=== PATIENT | male | born 1965 | race Hispanic/Latino ===

== ENCOUNTER 2020-11-24 15:09 | Inpatient (IN) | payer SELFPAY ==
[~2020-11-24 15:09] MED LIST: Iopamidol-370 76% 500 ML 1 ML ONE
[2020-11-24] MEDS ORDERED: Aspirin Chewable 81 MG TAB ONE (15:25)
[2020-11-24] MEDS ORDERED: cefTRIAXone\\ROCEPHIN 2 GM VIAL ONE (15:25)
[2020-11-24] MEDS ORDERED: Dexamethasone 4 mg/ml Vial ONE (15:25)
[2020-11-24 15:43] LABS: Hemoglobin 15.8 g/dL (14.0-18.0); Mean Corpuscular HGB CONC 33.5 g/dL (32.0-36.0); Mean Corpuscular Hemoglobin 30.9 pg (27.0-31.0); Mean Corpuscular Volume 92.5 fL (78.0-98.0); Mean Platelet Volume 7.9 fL (7.4-10.4); Platelet Count 198 thou/uL (130-400); RBC Distribution Width 12.9 % (11.5-14.5); Red Blood Cell (RBC) Count 5.09 mill/uL (4.70-6.10); White Blood Cell (WBC) Count 34.3 thou/uL (4.8-10.8)
[2020-11-24 16:03] LABS: ALT (SGPT) 54 U/L (8-55); AST (SGOT) 33 U/L (5-34); Albumin 3.3 g/dL (3.5-5.0); Alkaline Phosphatase 83 U/L (40-110); Anion Gap 14 mmol/L (10-20); BUN (Urea Nitrogen) 13 mg/dL (8.4-25.7); Bilirubin, Total 1.4 mg/dL (0.2-1.2); CK (CPK) 59 U/L (30-200); Calc. Creatinine Clearance 0 mL/min (70-130); Calcium 8.2 mg/dL (7.8-10.44); Carbon Dioxide 23 mmol/L (22-29); Chloride 103 mmol/L (98-107); Globulin 3.9 g/dL (2.4-3.5); Glucose 125 mg/dL (70-105); Lipase 46 U/L (8-78); Potassium 3.9 mmol/L (3.5-5.1); Protein, Total 7.2 g/dL (6.0-8.3); Sodium 136 mmol/L (136-145)
[2020-11-24 16:08] LABS: Band 25 % (5-11); Lymphocytes 11 % (21-51); MDiff Complete? YES; Metamyelocyte 2 % (0-0); Monocytes 11 % (0-10); Myelocyte 1 % (0-0); Neutrophil 47 % (42-75); Platelet Morphology Comment Appears Adequate; Polychromasia SLIGHT = 2-3 cells (100X) (0-2/hpf); Reactive Lymphocytes 3 % (0-10)
--- NOTE | 2020-11-24 16:20 | RAD ---
CHEST ONE VIEW: History: Shortness of breath, Covid pneumonia. Comparison: None FINDINGS: There is a linear opacity which has the appearance of a catheter projecting in the left hemithorax ma y be extrinsic to the patient. Extensive airspace opacities throughout the lungs. No pneumothorax. IMPRESSION: Commonly reported imaging findings felt to be high grade Covid pneumonia. POS: [facility]
[2020-11-24 16:25] LABS: CKMB 1.2 ng/mL (0-6.6)
[2020-11-24] MEDS ORDERED: Enoxaparin Sodium 100 MG/ML SYRINGE ONE (16:28)
[2020-11-24] MEDS ORDERED: Azithromycin 500 MG VIAL ONE (16:29)
[2020-11-24] MEDS ORDERED: Acetaminophen 500 MG TAB ONE (16:52)
--- NOTE | 2020-11-24 17:19 | PDOC.HHP ---
Hospitalist HPI - History of Present Illness Dyspnea History of Present Illness: PCP: None The patient is a 55-year-old male with no significant past medical history that presents to the emergency department for the above complaint. Patient reports testing positive for Covid 19 virus approximately 2 weeks ago. He remembers becoming symptomatic on the or 09 of November. Several days later he tested positive for COVID-19 virus. He reports his initial symptoms were mild shortness of breath, mild, intermittent, nonproductive cough and "a little bit" of diarrhea. He reports starting oral steroids that he completed several days ago. He reports that 2 days ago he became significantly more short of breath. His cough is mild and nonproductive. He denies any wheezing, history of asthma/COPD. He has no history of DVT/PE. He has been ambulatory. He denies any swelling to his lower extremities. He denies any chest pain, heart palpitations or lightheadedness. He denies any abdominal pain, nausea, vomiting or diarrhea. He denies any dysuria or hematuria. He denies any fever or chills. ED Course: VITAL SIGNS TueNov 24, 2020 15:12 LISA Flores, [facility] Pulse: 130, O2 sat: 75 on (2L Oxygen), Time: 11/24/2020 15:12. VITAL SIGNS TueNov 24, 2020 15:16 LISA Tapia [place] BP: 115/80, Pulse: 122, Resp: 42, Temp: 100.9 (Oral), Pain: 0, O2 sat: 84 on (4L Oxygen), Time: 11/24/2020 15:16. VITAL SIGNS TueNov 24, 2020 15:19 LISA [place]ia [place] O2 sat: 91 on (Non Rebreather), Time: 11/24/2020 15:19. VITAL SIGNS TueNov 24, 2020 16:49 LISA Tapia [place] BP: 133/92, Pulse: 109, Resp: 33, Pain: 0, O2 sat: 93 on (High Flow O2), Time: 11/24/2020 16:49. Medications: azithromycin intravenous 500 mg IV Piggy Back Given 16:43 11/24/2020 Tylenol 1 g Oral Given 16:43 11/24/2020 Lovenox 1 mg/kg Subcutaneous Given 16:42 11/24/2020 Decadron Phosphate injection 10mg mg IV Push Given 15:53 11/24/2020 cefTRIAXone injection 2 g IV Piggy Back Given 15:53 11/24/2020 sodium chloride 0.9 % intravenous 1 L IV Fluid Infusion Given 15:52 11/24/2020 aspirin oral 324 mg Oral Given 15:51 11/24/2020 Hospitalist ROS - Review of Systems All other systems reviewed; all pertinent +/- noted in HPI/Subj - Medication Medications: None Allergies: NKDA Hospitalist History - Past Medical History Source: patient Cardiac: reports: no pertinent history Pulmonary: reports: no pertinent history - Past Surgical History Past Surgical History: reports: no pertinent history - Family History Family History: reports: no pertinent history Other Family History: Noncontributory to this case. - Social History Smoking Status: Never smoker Alcohol: reports: None Drugs: reports: none Living Situation: With Family Occupation: Works as a die maintenance Activity level: independent ambulation - Exam General Appearance: awake alert. negative: ill appearing General - other findings: Mild respiratory distress, high flow nasal cannula, mildly tachypneic Eye: anicteric sclera ENT: normocephalic atraumatic Neck: supple, no lymphadenopathy Heart: no murmur, no gallops, no rubs, normal peripheral pulses Heart - other findings: Tachycardic Respiratory: no wheezes, no rales, rhonchi, tachypneic (Mildly tachypneic). negative: no tachypnea Gastrointestinal: soft, non-tender, non-distended, normal bowel sounds, no guarding, no rigidity Extremities: no cyanosis, no edema Skin: no rashes Neurological: no focal deficits Musculoskeletal: normal tone, normal strength Psychiatric: normal affect, A&O x 3 Hospitalist Results - Labs Result Diagrams: 11/24/20 15:27 11/24/20 15:27 Lab results: WBC 34.3 thou/uL (4.8-10.8) H 11/24/20 15: Hgb 15.8 g/dL (14.0-18.0) 11/24/20 15:27 Hct 47.1 % (42.0-52.0) 11/24/20 15: MCV 92.5 fL (78.0-98.0) 11/24/20 15:27 Plt Count 198 thou/uL (130-400) 11/24/20 15:27 Band Neuts % (Manual) 25 % (5-11) H 11/24/20 15:27 Sodium 136 mmol/L (136-145) 11/24/20 15:27 Potassium 3.9 mmol/L (3.5-5.1) 11/24/20 15:27 Chloride 103 mmol/L (98-107) 11/24/20 15: Carbon Dioxide 23 mmol/L (22-29) 11/24/20 15:27 BUN 13 mg/dL (8.4-25.7) 11/24/20 15: Creatinine 0.86 mg/dL (0.7-1.3) 11/24/20 15: Glucose 125 mg/dL (70-105) H 11/24/20 15: Lactic Acid 1.5 mmol/L (0.5-2.2) 11/24/20 15:39 Calcium 8.2 mg/dL (7.8-10.44) 11/24/20 15: Total Bilirubin 1.4 mg/dL (0.2-1.2) H 11/24/20 15:27 AST 33 U/L (5-34) 11/24/20 15: ALT 54 U/L (8-55) 11/24/20 15: Alkaline Phosphatase 83 U/L (40-110) 11/24/20 15: Creatine Kinase 59 U/L (30-200) 11/24/20 15:27 CK-MB (CK-2) 1.2 ng/mL (0-6.6) 11/24/20 15: Troponin I 0.095 ng/mL (< 0.028) H 11/24/20 15:27 B-Natriuretic Peptide 107.1 pg/mL (0-100) H 11/24/20 15:27 Serum Total Protein 7.2 g/dL (6.0-8.3) 11/24/20 15: Albumin 3.3 g/dL (3.5-5.0) L 11/24/20 15:27 Lipase 46 U/L (8-78) 11/24/20 15:27 - EKG Interpretation EKG: Sinus tach pulse 118 no STEMI. - Radiology Interpretation Chest x-ray Status: report reviewed by me Additional Comment: High grade covid PNA Hospitalist H&P A/P - Problem (1) Pneumonia due to COVID-19 virus Code(s): U07.1 - COVID-19; J12.82 - PNEUMONIA DUE TO CORONAVIRUS DISEASE 2018 Status: Acute (2) Acute respiratory failure with hypoxemia Code(s): J96.01 - ACUTE RESPIRATORY FAILURE WITH HYPOXIA Status: Acute (3) Pulmonary embolism Code(s): I26.99 - OTHER PULMONARY EMBOLISM WITHOUT ACUTE COR PULMONALE Status: Acute (4) Elevated troponin Code(s): R77.8 - OTHER SPECIFIED ABNORMALITIES OF PLASMA PROTEINS Status: Acute (5) Leukocytosis Code(s): D72.829 - ELEVATED WHITE BLOOD CELL COUNT, UNSPECIFIED Status: Acute - Plan Plan: #Pneumonia due to Covid Presented febrile, tachycardic, tachypneic, hypoxic, SPO2 70s, placed on nonrebreather. A: High flow nasal cannula 92%, mildly tachypneic, overall symptoms improved. Continue antibiotics. Continue full dose Lovenox. Continue dexamethasone. Start PPI. Isolation precautions. Not a remdesivir candidate. Supplemental oxygen. Trend acute phase reactants. #Acute respiratory failure with hypoxemia Plan per #1 and #3. #Pulmonary embolism CTA - suspicious for PE in RLL. Continue LWMH 1mg/kg. #Elevated troponin No cardiovascular disease history. Likely to problem #1 and #3. Trend troponins. Continue aspirin. #Leukocytosis Recently finished steroids. Likely secondary to recent steroid regimen. CXR consistent with Covid pneumonia. Continue antibiotics for now. Blood cultures pending. Lovenox full dose for Pulmonary embolism. Protonix for GI prophylaxis. CODE STATUS full code. Discussed the case with attending physician, Dr. Morrow, who agrees with plan of care.
[2020-11-24] MEDS ORDERED: Ondansetron ODT 4 MG TAB PO PRN (17:41)
[2020-11-24] MEDS ORDERED: Senokot S 8.6-50 MG TAB PO PRN (17:41)
[2020-11-24] MEDS ORDERED: Acetaminophen 325 MG TAB PO PRN (17:41)
[2020-11-24] MEDS ORDERED: Calcium Carbonate 500 MG ChewTAB PO PRN (17:41)
[2020-11-24] MEDS ORDERED: Ondansetron PF 4 MG/2 ML Vial IVP PRN (17:41)
[2020-11-24] MEDS ORDERED: Guaifenesin DM 100-10/5 ML UDCUP PO PRN (17:41)
--- NOTE | 2020-11-24 17:42 | CT ---
CT ANGIO OF CHEST PERFORMED WITH INTRAVENOUS CONTRAST ENHANCEMENT WITH 3D RECONSTRUCTIONS: History: Shortness of breath, Covid pneumonia. FINDINGS: Extensive bilateral ground glass infiltrative lung changes are seen compatible with Covid pneumonia. No significant mediastinal or hilar adenopathy. The thoracic aorta is normal in caliber. There is good pulmonary artery opacification. Respiratory ar tifact degrades detail, particularly in the lower lobes. This respiratory motion artifact does signif icantly degrade detail. There still appears to be a right lower lobe embolus present. It is more diff icult to definitely establish left lower lobe emboli. These are smaller subsegmental emboli. IMPRESSION: 1. Diffuse Covid pneumonia changes. 2. Considerable respiratory motion artifact degrades detail. However, findings are suspicious fo r right lower lobe pulmonary emboli. POS: OFF
[2020-11-24 18:20] LABS: PTT 28.5 sec (22.9-36.1)
[2020-11-24 18:21] LABS: INR-International Normal Ratio 1.1; Prothrombin Time 14.4 sec (12.0-14.7)
[2020-11-24 18:24] LABS: Troponin I 0.131 ng/mL (< 0.028)
[2020-11-24 20:30] VITALS: BMI 31.8
[2020-11-24 22:03] LABS: Troponin I 0.065 ng/mL (< 0.028)
[2020-11-25] MEDS: Enoxaparin Sodium 100 MG/ML SYRINGE SC SCH ×2 (05:56→18:44)
[2020-11-25 06:22] LABS: Bacteria/HPF None Seen HPF (None Seen); Bilirubin Negative (Negative); Blood, Urine Negative (Negative); Clarity Clear (Clear); Glucose, Urine (Dipstick) Normal (Negative); Ketone, Urine Trace mg/dL (Negative); Leukocyte Negative Leu/uL (Negative); Nitrite Negative (Negative); Protein, Urine (Dipstick) 50 mg/dL (Neg-Trace); Specific Gravity, Urine 1.045 (1.002-1.036); Squamous Epithelial None Seen HPF (0-3); Urobilinogen Normal mg/dL (Less than 2); WBC/HPF 0-3 HPF (0-3)
[2020-11-25 06:58] LABS: Hemoglobin 14.6 g/dL (14.0-18.0); Mean Platelet Volume 8.7 fL (7.4-10.4); Platelet Count 182 thou/uL (130-400); Red Blood Cell (RBC) Count 4.71 mill/uL (4.70-6.10); White Blood Cell (WBC) Count 31.8 thou/uL (4.8-10.8)
[2020-11-25 07:18] LABS: ALT (SGPT) 49 U/L (8-55); AST (SGOT) 31 U/L (5-34); Albumin 2.8 g/dL (3.5-5.0); Alkaline Phosphatase 79 U/L (40-110); Anion Gap 16 mmol/L (10-20); BUN (Urea Nitrogen) 15 mg/dL (8.4-25.7); Bilirubin, Total 0.8 mg/dL (0.2-1.2); Calc. Creatinine Clearance 141 mL/min (70-130); Calcium 8.1 mg/dL (7.8-10.44); Carbon Dioxide 20 mmol/L (22-29); Cardiac Risk 5.6 (Less than 4.5); Chloride 107 mmol/L (98-107); Cholesterol 134 mg/dl (< 200 Desired); Globulin 3.7 g/dL (2.4-3.5); Glucose 109 mg/dL (70-105); HDL Cholesterol 24 mg/dL (>60 Neg Risk); LDL Cholesterol, Calculated 68 mg/dL; Magnesium 2.2 mg/dL (1.6-2.6); Potassium 4.3 mmol/L (3.5-5.1); Protein, Total 6.5 g/dL (6.0-8.3); Sodium 139 mmol/L (136-145); Triglycerides 208 mg/dL (Less than 150)
[2020-11-25 07:48] LABS: Band 14 % (5-11); Lymphocytes 8 % (21-51); MDiff Complete? YES; Metamyelocyte 3 % (0-0); Monocytes 7 % (0-10); Neutrophil 67 % (42-75); Platelet Morphology Comment Appears Adequate; Polychromasia SLIGHT = 2-3 cells (100X) (0-2/hpf); Reactive Lymphocytes 1 % (0-10)
[2020-11-25] MEDS ORDERED: Loperamide HCl 2 MG CAP PO PRN (07:56)
[2020-11-25] MEDS ORDERED: hydrALAZINE 20 MG/ML VIAL SLOW IVP PRN (07:56)
[2020-11-25] MEDS ORDERED: GUAIFENESIN SF SOLN 200 MG/10 ML UDCUP PO PRN (07:56)
[2020-11-25] MEDS ORDERED: Benzonatate 100 MG CAP PO PRN (07:56)
[2020-11-25] MEDS ORDERED: HYDROcodone/Acetaminophen 5/325 mg Tablet PO PRN (07:56)
[2020-11-25] MEDS ORDERED: Bisacodyl 5 MG TAB PO PRN (07:56)
[2020-11-25] MEDS ORDERED: Cepastat Lozenges 1 LOZ PO PRN (07:56)
[2020-11-25] MEDS ORDERED: Sodium Chloride 0.65% Nasal 44 ML BOT EA NARE PRN (07:56)
[2020-11-25] MEDS ORDERED: Loratadine 10 MG TAB PO PRN (07:56)
[2020-11-25] MEDS: Dexamethasone 4 mg/ml Vial SLOW IVP SCH (08:29)
[2020-11-25] MEDS: Aspirin 81 mg Enteric Coated Tablet PO SCH (08:29)
[2020-11-25] MEDS ORDERED: FLU VACC QS2020-21(6MOS UP)/PF 60 MCG/0.5 ML SYRINGE IM ONE (09:00)
--- NOTE | 2020-11-25 13:20 | PDOC.HOSPP ---
- Subjective Encounter Date: 11/25/20 Encounter Time: 09:40 Subjective: Patient seen and examined. No new complaints. No overnight events, he is on high flow oxygen, - Objective Vital Signs & Weight: Vital Signs (12 hours) Temp Pulse Resp BP Pulse Ox 11/25/20 12:00 98.6 F 91 20 111/74 96 11/25/20 11:30 96 11/25/20 08:30 97 11/25/20 07:58 98.9 F 85 22 H 127/85 97 11/25/20 04:43 97.5 F L 82 20 119/81 100 Weight Admit Weight 197 lb 9.6 oz Weight 197 lb 9.6 oz I&O: 11/24/20 11/25/20 11/26/20 06:59 06:59 06:59 Output Total 400 Balance -400 Result Diagrams: 11/25/20 06:23 11/25/20 06:24 Radiology Reviewed by me: Yes (CT angiogram chest x-ray reviewed,) Hospitalist ROS - Review of Systems Constitutional: reports: weakness, malaise Eyes: denies: pain, vision change, conjunctivae inflammation, eyelid inflammation, redness, other ENT: denies: ear pain, ear discharge, nose pain, nose discharge, nose congestion, mouth pain, mouth swelling, throat pain, throat swelling, other Respiratory: reports: cough, shortness of breath, SOB with excertion. denies: dry, hemoptysis, pleuritic pain, sputum, wheezing, other Cardiovascular: denies: chest pain, palpitations, orthopnea, paroxysmal noc. dyspnea, edema, light headedness, other Gastrointestinal: denies: nausea, vomiting, abdominal pain, diarrhea, constipation, melena, hematochezia, other Genitourinary: denies: dysuria, frequency, incontinence, hematuria, retention, other Musculoskeletal: denies: neck pain, shoulder pain, arm pain, back pain, hand pain, leg pain, foot pain, other Skin: denies: rash, lesions, miguel ángel, bruising, other - Medication Medications: Active Medications Generic Name Dose Route Start Last Admin Trade Name Freq PRN Reason Stop Dose Admin Aspirin 81 mg 11/25/20 09:00 11/25/20 08:29 Aspirin 81 Mg Enteric Coated Tablet PO 81 mg DAILY OSBALDO Administration Dexamethasone 6 mg 11/25/20 09:00 11/25/20 08:29 Dexamethasone 4 Mg/Ml Vial SLOW IVP 6 mg DAILY OSBALDO Administration Enoxaparin Sodium 90 mg 11/25/20 05:00 11/25/20 05:56 Enoxaparin Sodium 100 Mg/Ml Syringe SC 90 mg 0500,1700 OSBALDO Administration Pantoprazole Sodium 40 mg 11/25/20 09:00 11/25/20 08:29 Pantoprazole 40 Mg Tab PO 40 mg DAILY OSBALDO Administration - Exam General Appearance: NAD, awake alert Eye: PERRL, anicteric sclera ENT: normocephalic atraumatic, no oropharyngeal lesions Neck: supple, symmetric, no JVD, no thyromegaly Heart: RRR, no murmur, no gallops, no rubs Respiratory: no wheezes, no ronchi, tachypneic Respiratory - other findings: Bilateral scattered rales noted, Gastrointestinal: soft, non-tender, non-distended, normal bowel sounds Extremities: no cyanosis, no clubbing, no edema Skin: normal turgor, no lesions Neurological: no focal deficits Musculoskeletal: normal tone, normal strength, no muscle wasting Psychiatric: normal affect, normal behavior, A&O x 3 Hosp A/P (1) Acute respiratory failure with hypoxemia Code(s): J96.01 - ACUTE RESPIRATORY FAILURE WITH HYPOXIA Status: Acute (2) Pneumonia due to COVID-19 virus Code(s): U07.1 - COVID-19; J12.82 - PNEUMONIA DUE TO CORONAVIRUS DISEASE 2019 Status: Acute (3) Pulmonary embolism Code(s): I26.99 - OTHER PULMONARY EMBOLISM WITHOUT ACUTE COR PULMONALE Status: Acute (4) Leukocytosis Code(s): D72.829 - ELEVATED WHITE BLOOD CELL COUNT, UNSPECIFIED Status: Acute (5) Type 2 myocardial infarction Code(s): I21.A1 - MYOCARDIAL INFARCTION TYPE 2 Status: Acute (6) Obesity (BMI 30.0-34.9) Code(s): E66.9 - OBESITY, UNSPECIFIED Status: Chronic - Plan old records reviewed/req, continue antibiotics, respiratory therapy, DVT proph w/lovenox Continue empiric Rocephin and azithromycin Continue Lovenox 1 mg/kg Continue high flow oxygen and wean off as tolerated, Close monitoring for any deterioration Medication reviewed and continued per symptomatic and supportive care Continue dexamethasone, Not a candidate for remdesivir therapy based on onset of symptoms,
[2020-11-25 13:59] LABS: SARS-CoV-2 PCR by NAA DETECTED (NotDetected)
[2020-11-25] MEDS: cefTRIAXone\\ROCEPHIN 1 GM in Sodium Chloride 0.9% 100 ML IVPB SCH (16:00)
[2020-11-25] MEDS: Azithromycin 500 MG in Sodium Chloride 0.9% 250 ML 250 ML IVPB SCH (17:15)
[2020-11-25] MEDS: Albuterol 200 PUFF (6.7GM INHALER) INH SCH ×2 (18:44)
[2020-11-26] MEDS: Albuterol 200 PUFF (6.7GM INHALER) INH SCH ×4 (00:17→20:00)
[2020-11-26] MEDS: Enoxaparin Sodium 100 MG/ML SYRINGE SC SCH ×2 (05:52→18:38)
[2020-11-26] MEDS: Aspirin 81 mg Enteric Coated Tablet PO SCH (08:49)
[2020-11-26] MEDS: Dexamethasone 4 mg/ml Vial SLOW IVP SCH (08:49)
[2020-11-26] MEDS: cefTRIAXone\\ROCEPHIN 1 GM in Sodium Chloride 0.9% 100 ML IVPB SCH (16:00)
[2020-11-26] MEDS: Azithromycin 500 MG in Sodium Chloride 0.9% 250 ML 250 ML IVPB SCH (18:00)
--- NOTE | 2020-11-26 18:58 | PDOC.HOSPP ---
- Subjective Encounter Date: 11/26/20 Encounter Time: 12:00 Subjective: Patient seen for follow-up regarding acute hypoxic respiratory failure. Denies chest pain or shortness of breath. - Objective Vital Signs & Weight: Vital Signs (12 hours) Temp Pulse Resp BP Pulse Ox 11/26/20 11:39 93 L 11/26/20 07:43 98.2 F 81 22 H 117/81 93 L Weight Admit Weight 197 lb 9.6 oz Weight 197 lb 9.6 oz I&O: 11/25/20 11/26/20 11/27/20 06:59 06:59 06:59 Intake Total 1670 1550 Output Total 400 600 Balance -400 1070 1550 Result Diagrams: 11/25/20 06:23 11/25/20 06:24 Additional Labs: Labs and MAR reviewed by nd Hospitalist ROS - Review of Systems Respiratory: reports: cough, dry, SOB with excertion. denies: shortness of breath, hemoptysis, pleuritic pain, sputum, wheezing Cardiovascular: denies: chest pain, palpitations, orthopnea, paroxysmal noc. dyspnea, edema, light headedness - Medication Medications: Active Medications Generic Name Dose Route Start Last Admin Trade Name Freq PRN Reason Stop Dose Admin Hydrocodone Bitart/Acetaminophen 1 tab 11/25/20 07:56 11/26/20 05:52 Hydrocodone/Acetaminophen 5/325 Mg Tablet PO 1 tab Q4H PRN Administration Moderate Pain (4-6) Albuterol Sulfate 2 puff 11/25/20 13:00 11/26/20 13:00 Albuterol 200 Puff (6.7gm Inhaler) INH 2 puff [id number] OSBALDO Administration Aspirin 81 mg 11/25/20 09:00 11/26/20 08:49 Aspirin 81 Mg Enteric Coated Tablet PO 81 mg DAILY OSBALDO Administration Dexamethasone 6 mg 11/25/20 09:00 11/26/20 08:49 Dexamethasone 4 Mg/Ml Vial SLOW IVP 6 mg DAILY OSBALDO Administration Enoxaparin Sodium 90 mg 11/25/20 05:00 11/26/20 18:38 Enoxaparin Sodium 100 Mg/Ml Syringe SC 90 mg 0500,1700 OSBALDO Administration Ceftriaxone Sodium 1 gm/ 100 mls @ 200 mls/hr 11/25/20 15:00 11/26/20 16:00 Sodium Chloride IVPB 100 mls 1500 OSBALDO Administration Azithromycin 500 mg/ Sodium 250 mls @ 250 mls/hr 11/25/20 17:00 11/26/20 18:00 Chloride IVPB 250 mls 1700 OSBALDO Administration Pantoprazole Sodium 40 mg 11/25/20 09:00 11/26/20 08:49 Pantoprazole 40 Mg Tab PO 40 mg DAILY OSBALDO Administration - Exam General - other findings: Obese Eye: anicteric sclera ENT: no oropharyngeal lesions Neck: supple Heart: RRR Respiratory: rhonchi Gastrointestinal: soft, non-tender Neurological: cranial nerve grossly intact Musculoskeletal: no muscle wasting Psychiatric: normal affect, normal behavior Hosp A/P - Plan Hosp A/P (1) Acute respiratory failure with hypoxemia Code(s): J96.01 - ACUTE RESPIRATORY FAILURE WITH HYPOXIA Status: Acute (2) Pneumonia due to COVID-19 virus Code(s): U07.1 - COVID-19; J12.82 - PNEUMONIA DUE TO CORONAVIRUS DISEASE 2019 Status: Acute (3) Pulmonary embolism Code(s): I26.99 - OTHER PULMONARY EMBOLISM WITHOUT ACUTE COR PULMONALE Status: Acute (4) Leukocytosis Code(s): D72.829 - ELEVATED WHITE BLOOD CELL COUNT, UNSPECIFIED Status: Acute (5) Type 2 myocardial infarction Code(s): I21.A1 - MYOCARDIAL INFARCTION TYPE 2 Status: Acute (6) Obesity (BMI 30.0-34.9) Code(s): E66.9 - OBESITY, UNSPECIFIED Status: Chronic - Plan Continue ceftriaxone and azithromycin. Continue dexamethasone for COVID-19 pneumonia. Continue Lovenox 1 mg/kg for pulmonary embolism, transition to oral anticoagulant. Patient is on high flow oxygen. Close monitoring for any deterioration Medication reviewed and continued per symptomatic and supportive care Not a candidate for remdesivir therapy based on onset of symptoms,
[2020-11-26] MEDS ORDERED: Warfarin Sodium 5 MG TAB PO SCH (19:45)
[2020-11-26] MEDS: Zolpidem Tartrate 5 MG TAB PO PRN (22:35)
[2020-11-27] MEDS: Albuterol 200 PUFF (6.7GM INHALER) INH SCH ×4 (00:39→17:29)
[2020-11-27 05:36] LABS: Prothrombin Time 13.8 sec (12.0-14.7)
[2020-11-27] MEDS: Enoxaparin Sodium 100 MG/ML SYRINGE SC SCH (05:38)
[2020-11-27] MEDS: Aspirin 81 mg Enteric Coated Tablet PO SCH (08:35)
[2020-11-27] MEDS: Dexamethasone 4 mg/ml Vial SLOW IVP SCH (08:36)
--- NOTE | 2020-11-27 14:49 | PDOC.HOSPP ---
- Subjective Encounter Date: 11/27/20 Encounter Time: 10:00 Subjective: Patient seen for follow-up regarding acute hypoxic respiratory failure. He denies chest pain. He reports shortness of breath with exertion. - Objective Vital Signs & Weight: Vital Signs (12 hours) Temp Pulse Resp BP Pulse Ox 11/27/20 08:00 98 11/27/20 07:45 90 L 11/27/20 07:41 99.0 F 83 18 114/74 97 11/27/20 04:53 98.1 F 83 18 115/78 98 Weight Admit Weight 197 lb 9.6 oz Weight 197 lb 9.6 oz I&O: 11/26/20 11/27/20 11/28/20 06:59 06:59 06:59 Intake Total 1670 2280 Output Total 600 400 Balance 1070 1880 Result Diagrams: 11/25/20 06:23 11/25/20 06:24 Additional Labs: I reviewed patient's labs and MAR Hospitalist ROS - Review of Systems Respiratory: reports: cough, dry, SOB with excertion. denies: shortness of breath, hemoptysis, pleuritic pain, sputum, wheezing Cardiovascular: denies: chest pain, palpitations, orthopnea, paroxysmal noc. dyspnea, edema, light headedness - Medication Medications: Active Medications Generic Name Dose Route Start Last Admin Trade Name Freq PRN Reason Stop Dose Admin Hydrocodone Bitart/Acetaminophen 1 tab 11/25/20 07:56 11/26/20 05:52 Hydrocodone/Acetaminophen 5/325 Mg Tablet PO 1 tab Q4H PRN Administration Moderate Pain (4-6) Albuterol Sulfate 2 puff 11/25/20 13:00 11/27/20 12:55 Albuterol 200 Puff (6.7gm Inhaler) INH 2 puff [id number] OSBALDO Administration Aspirin 81 mg 11/25/20 09:00 11/27/20 08:35 Aspirin 81 Mg Enteric Coated Tablet PO 81 mg DAILY OSBALDO Administration Dexamethasone 6 mg 11/25/20 09:00 11/27/20 08:36 Dexamethasone 4 Mg/Ml Vial SLOW IVP 6 mg DAILY OSBALDO Administration Enoxaparin Sodium 90 mg 11/25/20 05:00 11/27/20 05:38 Enoxaparin Sodium 100 Mg/Ml Syringe SC 90 mg 0500,1700 OSBALDO Administration Ceftriaxone Sodium 1 gm/ 100 mls @ 200 mls/hr 11/25/20 15:00 11/26/20 16:00 Sodium Chloride IVPB 100 mls 1500 OSBALDO Administration Azithromycin 500 mg/ Sodium 250 mls @ 250 mls/hr 11/25/20 17:00 11/26/20 18:00 Chloride IVPB 250 mls 1700 OSBALDO Administration Pantoprazole Sodium 40 mg 11/25/20 09:00 11/27/20 08:35 Pantoprazole 40 Mg Tab PO 40 mg DAILY OSBALDO Administration Zolpidem Tartrate 5 mg 11/25/20 07:56 11/26/20 22:35 Zolpidem Tartrate 5 Mg Tab PO 5 mg HSPRN PRN Administration Insomnia - Exam General Appearance: awake alert Eye: anicteric sclera ENT: normocephalic atraumatic, moist mucosa Neck: supple Heart: RRR Respiratory: rales, rhonchi Gastrointestinal: soft, non-tender Skin: no rashes Psychiatric: normal affect Hosp A/P - Plan Hosp A/P (1) Acute respiratory failure with hypoxemia Code(s): J96.01 - ACUTE RESPIRATORY FAILURE WITH HYPOXIA Status: Acute (2) Pneumonia due to COVID-19 virus Code(s): U07.1 - COVID-19; J12.82 - PNEUMONIA DUE TO CORONAVIRUS DISEASE 2019 Status: Acute (3) Pulmonary embolism Code(s): I26.99 - OTHER PULMONARY EMBOLISM WITHOUT ACUTE COR PULMONALE Status: Acute (4) Leukocytosis Code(s): D72.829 - ELEVATED WHITE BLOOD CELL COUNT, UNSPECIFIED Status: Acute (5) Type 2 myocardial infarction Code(s): I21.A1 - MYOCARDIAL INFARCTION TYPE 2 Status: Acute (6) Obesity (BMI 30.0-34.9) Code(s): E66.9 - OBESITY, UNSPECIFIED Status: Chronic - Plan Patient is on ceftriaxone and azithromycin. Continue dexamethasone for COVID-19 pneumonia. Discontinue Lovenox, start Eliquis. Continue high flow oxygen. Close monitoring for any deterioration Not a candidate for remdesivir therapy based on onset of symptoms,
[2020-11-27] MEDS: cefTRIAXone\\ROCEPHIN 1 GM in Sodium Chloride 0.9% 100 ML IVPB SCH (15:12)
[2020-11-27 15:57] LABS: Hemoglobin 14.3 g/dL (14.0-18.0); Mean Corpuscular HGB CONC 32.5 g/dL (32.0-36.0); Mean Corpuscular Volume 92.4 fL (78.0-98.0); Mean Platelet Volume 8.6 fL (7.4-10.4); Platelet Count 304 thou/uL (130-400); Red Blood Cell (RBC) Count 4.78 mill/uL (4.70-6.10); White Blood Cell (WBC) Count 29.3 thou/uL (4.8-10.8)
[2020-11-27 16:13] LABS: Anion Gap 16 mmol/L (10-20); BUN (Urea Nitrogen) 18 mg/dL (8.4-25.7); Calc. Creatinine Clearance 143 mL/min (70-130); Calcium 8.4 mg/dL (7.8-10.44); Carbon Dioxide 20 mmol/L (22-29); Chloride 102 mmol/L (98-107); Glucose 118 mg/dL (70-105); Potassium 4.9 mmol/L (3.5-5.1); Sodium 133 mmol/L (136-145)
[2020-11-27 16:21] LABS: Band 10 % (5-11); Lymphocytes 8 % (21-51); MDiff Complete? YES; Metamyelocyte 5 % (0-0); Monocytes 7 % (0-10); Myelocyte 2 % (0-0); Neutrophil 67 % (42-75); Platelet Morphology Comment Appears Adequate; RBC Morphology Normal; Reactive Lymphocytes 1 % (0-10)
[2020-11-27] MEDS ORDERED: Warfarin Sodium 5 MG TAB PO SCH (17:00)
[2020-11-27] MEDS: Azithromycin 500 MG in Sodium Chloride 0.9% 250 ML 250 ML IVPB SCH (17:29)
[2020-11-27] MEDS: Apixaban 5 MG TAB PO SCH (20:57)
[2020-11-27] MEDS: Melatonin 3 MG TAB PO PRN (20:58)
[2020-11-28] MEDS: Albuterol 200 PUFF (6.7GM INHALER) INH SCH ×4 (01:00→18:19)
[2020-11-28 06:46] LABS: Hemoglobin 14.6 g/dL (14.0-18.0); Mean Corpuscular HGB CONC 33.2 g/dL (32.0-36.0); Mean Corpuscular Hemoglobin 31.1 pg (27.0-31.0); Mean Corpuscular Volume 93.8 fL (78.0-98.0); Mean Platelet Volume 8.8 fL (7.4-10.4); Platelet Count 274 thou/uL (130-400); White Blood Cell (WBC) Count 27.7 thou/uL (4.8-10.8)
[2020-11-28 07:03] LABS: Anion Gap 14 mmol/L (10-20); BUN (Urea Nitrogen) 18 mg/dL (8.4-25.7); Calc. Creatinine Clearance 147 mL/min (70-130); Calcium 8.3 mg/dL (7.8-10.44); Carbon Dioxide 22 mmol/L (22-29); Chloride 100 mmol/L (98-107); Glucose 93 mg/dL (70-105); Potassium 4.4 mmol/L (3.5-5.1); Sodium 132 mmol/L (136-145)
[2020-11-28 07:51] LABS: Band 15 % (5-11); Lymphocytes 14 % (21-51); MDiff Complete? YES; Metamyelocyte 6 % (0-0); Monocytes 11 % (0-10); Myelocyte 1 % (0-0); Neutrophil 53 % (42-75); Platelet Morphology Comment Appears Adequate; Polychromasia SLIGHT = 2-3 cells (100X) (0-2/hpf); Toxic Granulation SLIGHT
[2020-11-28] MEDS: Dexamethasone 4 mg/ml Vial SLOW IVP SCH (08:01)
[2020-11-28] MEDS: Apixaban 5 MG TAB PO SCH ×2 (08:01→20:24)
[2020-11-28] MEDS: Aspirin 81 mg Enteric Coated Tablet PO SCH (08:01)
--- NOTE | 2020-11-28 12:28 | EKG ---
Test Reason : STAT Blood Pressure : / mmHG Vent. Rate : 080 BPM Atrial Rate : 080 BPM P-R Int : 128 ms QRS Dur : 074 ms QT Int : 384 ms P-R-T Axes : 030 013 012 degrees QTc Int : 442 ms Normal sinus rhythm ST elevation, consider early repolarization Borderline ECG Confirmed by JAMIN PEDERSEN ([id number]) on 11/28/2020 12:28:36 PM Referred By: Confirmed By:JAMIN PEDERSEN
[2020-11-28] MEDS: cefTRIAXone\\ROCEPHIN 1 GM in Sodium Chloride 0.9% 100 ML IVPB SCH (14:22)
[2020-11-28] MEDS: Azithromycin 500 MG in Sodium Chloride 0.9% 250 ML 250 ML IVPB SCH (16:36)
--- NOTE | 2020-11-28 17:15 | PDOC.HOSPP ---
- Subjective Encounter Date: 11/28/20 Encounter Time: 10:00 Subjective: Patient seen for follow-up regarding respiratory failure, hypoxic. Denies chest pain. Reports shortness of breath with exertion. - Objective Vital Signs & Weight: Vital Signs (12 hours) Temp Pulse Resp BP Pulse Ox 11/28/20 16:32 98.5 F 91 18 110/78 11/28/20 11:50 89 89 L 11/28/20 11:20 98.6 F 96 18 117/84 11/28/20 08:13 101 H 91 L 11/28/20 07:31 98.4 F 99 18 111/77 Weight Admit Weight 197 lb 9.6 oz Weight 197 lb 9.6 oz I&O: 11/27/20 11/28/20 11/29/20 06:59 06:59 06:59 Intake Total 2280 730 Output Total 400 300 Balance 1880 430 Result Diagrams: 11/28/20 06:25 11/28/20 06:25 Additional Labs: Labs and MAR reviewed by ri Hospitalist ROS - Review of Systems Constitutional: denies: fever, chills, sweats, weakness, malaise Respiratory: reports: cough, dry, SOB with excertion. denies: shortness of breath, hemoptysis, pleuritic pain, sputum, wheezing - Medication Medications: Active Medications Generic Name Dose Route Start Last Admin Trade Name Freq PRN Reason Stop Dose Admin Hydrocodone Bitart/Acetaminophen 1 tab 11/25/20 07:56 11/26/20 05:52 Hydrocodone/Acetaminophen 5/325 Mg Tablet PO 1 tab Q4H PRN Administration Moderate Pain (4-6) Albuterol Sulfate 2 puff 11/25/20 13:00 11/28/20 14:21 Albuterol 200 Puff (6.7gm Inhaler) INH 2 puff [id number] OSBALDO Administration Apixaban 10 mg 11/27/20 21:00 11/28/20 08:01 Apixaban 5 Mg Tab PO 10 mg BID OSBALDO Administration Aspirin 81 mg 11/25/20 09:00 11/28/20 08:01 Aspirin 81 Mg Enteric Coated Tablet PO 81 mg DAILY OSBALDO Administration Dexamethasone 6 mg 11/25/20 09:00 11/28/20 08:01 Dexamethasone 4 Mg/Ml Vial SLOW IVP 6 mg DAILY OSBALDO Administration Ceftriaxone Sodium 1 gm/ 100 mls @ 200 mls/hr 11/25/20 15:00 11/28/20 14:22 Sodium Chloride IVPB 100 mls 1500 OSBALDO Administration Azithromycin 500 mg/ Sodium 250 mls @ 250 mls/hr 11/25/20 17:00 11/28/20 16:36 Chloride IVPB 250 mls 1700 OSBALDO Administration Melatonin 3 mg 11/27/20 11:00 11/27/20 20:58 Melatonin 3 Mg Tab PO 3 mg HS PRN Administration Insomnia Zolpidem Tartrate 5 mg 11/25/20 07:56 11/26/20 22:35 Zolpidem Tartrate 5 Mg Tab PO 5 mg HSPRN PRN Administration Insomnia - Exam General - other findings: Obese ENT: moist mucosa Neck: supple Heart: RRR Respiratory: CTAB Gastrointestinal: soft, non-tender Skin: no rashes Psychiatric: normal affect Hosp A/P - Plan Hosp A/P (1) Acute respiratory failure with hypoxemia Code(s): J96.01 - ACUTE RESPIRATORY FAILURE WITH HYPOXIA Status: Acute (2) Pneumonia due to COVID-19 virus Code(s): U07.1 - COVID-19; J12.82 - PNEUMONIA DUE TO CORONAVIRUS DISEASE 2019 Status: Acute (3) Pulmonary embolism Code(s): I26.99 - OTHER PULMONARY EMBOLISM WITHOUT ACUTE COR PULMONALE Status: Acute (4) Leukocytosis Code(s): D72.829 - ELEVATED WHITE BLOOD CELL COUNT, UNSPECIFIED Status: Acute (5) Type 2 myocardial infarction Code(s): I21.A1 - MYOCARDIAL INFARCTION TYPE 2 Status: Acute (6) Obesity (BMI 30.0-34.9) Code(s): E66.9 - OBESITY, UNSPECIFIED Status: Chronic - Plan Patient has been transitioned to oxygen by nasal cannula, currently on 6 L/min. Continue ceftriaxone and azithromycin. Continue dexamethasone. Continue Eliquis. Close monitoring for any deterioration Not a candidate for remdesivir therapy.
[2020-11-28] MEDS: Zolpidem Tartrate 5 MG TAB PO PRN (20:24)
[2020-11-29] MEDS: Albuterol 200 PUFF (6.7GM INHALER) INH SCH ×4 (00:48→19:45)
[2020-11-29] MEDS: Apixaban 5 MG TAB PO SCH ×2 (08:21→19:45)
[2020-11-29] MEDS: Dexamethasone 4 mg/ml Vial SLOW IVP SCH (08:21)
[2020-11-29] MEDS: Aspirin 81 mg Enteric Coated Tablet PO SCH (08:21)
[2020-11-29 11:02] LABS: Hemoglobin 14.8 g/dL (14.0-18.0); Mean Corpuscular HGB CONC 32.5 g/dL (32.0-36.0); Mean Corpuscular Hemoglobin 30.9 pg (27.0-31.0); Mean Corpuscular Volume 95.1 fL (78.0-98.0); Mean Platelet Volume 8.9 fL (7.4-10.4); Platelet Count 301 thou/uL (130-400); RBC Distribution Width 12.9 % (11.5-14.5); Red Blood Cell (RBC) Count 4.79 mill/uL (4.70-6.10)
[2020-11-29 11:37] LABS: Band 3 % (5-11); Lymphocytes 2 % (21-51); MDiff Complete? YES; Metamyelocyte 3 % (0-0); Monocytes 10 % (0-10); Neutrophil 81 % (42-75); Platelet Morphology Comment Appears Adequate; Reactive Lymphocytes 1 % (0-10)
[2020-11-29 12:04] LABS: Calcium 8.9 mg/dL (7.8-10.44); Chloride 102 mmol/L (98-107); Sodium 138 mmol/L (136-145)
[2020-11-29 12:05] LABS: Glucose 106 mg/dL (70-105)
[2020-11-29 12:06] LABS: Anion Gap 16 mmol/L (10-20); Carbon Dioxide 25 mmol/L (22-29)
[2020-11-29 12:08] LABS: Calc. Creatinine Clearance 126 mL/min (70-130)
[2020-11-29 12:09] LABS: BUN (Urea Nitrogen) 23 mg/dL (8.4-25.7)
[2020-11-29] MEDS: cefTRIAXone\\ROCEPHIN 1 GM in Sodium Chloride 0.9% 100 ML IVPB SCH (14:08)
[2020-11-29] MEDS: Azithromycin 500 MG in Sodium Chloride 0.9% 250 ML 250 ML IVPB SCH (19:44)
[2020-11-29] MEDS: Zolpidem Tartrate 5 MG TAB PO PRN (19:45)
[2020-11-30] MEDS: Albuterol 200 PUFF (6.7GM INHALER) INH SCH ×4 (00:53→18:18)
[2020-11-30 07:39] LABS: Anion Gap 14 mmol/L (10-20); BUN (Urea Nitrogen) 20 mg/dL (8.4-25.7); Calc. Creatinine Clearance 147 mL/min (70-130); Calcium 8.5 mg/dL (7.8-10.44); Carbon Dioxide 23 mmol/L (22-29); Chloride 104 mmol/L (98-107); Glucose 86 mg/dL (70-105); Potassium 4.6 mmol/L (3.5-5.1); Sodium 136 mmol/L (136-145)
[2020-11-30] MEDS: Apixaban 5 MG TAB PO SCH ×2 (07:49→20:23)
[2020-11-30] MEDS: Dexamethasone 4 mg/ml Vial SLOW IVP SCH (07:49)
[2020-11-30] MEDS: Aspirin 81 mg Enteric Coated Tablet PO SCH (07:49)
[2020-11-30 07:50] LABS: Hemoglobin 13.8 g/dL (14.0-18.0); Mean Corpuscular HGB CONC 32.3 g/dL (32.0-36.0); Mean Corpuscular Hemoglobin 30.1 pg (27.0-31.0); Mean Corpuscular Volume 93.3 fL (78.0-98.0); Mean Platelet Volume 8.9 fL (7.4-10.4); Platelet Count 322 thou/uL (130-400); Red Blood Cell (RBC) Count 4.58 mill/uL (4.70-6.10); White Blood Cell (WBC) Count 30.1 thou/uL (4.8-10.8)
[2020-11-30 10:02] LABS: Band 3 % (5-11); Hypersemented Neutrophil SLIGHT; Lymphocytes 8 % (21-51); MDiff Complete? YES; Metamyelocyte 1 % (0-0); Monocytes 13 % (0-10); Myelocyte 1 % (0-0); Neutrophil 73 % (42-75); Platelet Morphology Comment Appears Adequate; Reactive Lymphocytes 1 % (0-10)
[2020-11-30] MEDS: cefTRIAXone\\ROCEPHIN 1 GM in Sodium Chloride 0.9% 100 ML IVPB SCH (14:41)
--- NOTE | 2020-11-30 14:48 | PDOC.HOSPP ---
- Subjective Encounter Date: 11/30/20 Encounter Time: 09:30 Subjective: Patient seen for follow-up for hypoxic respiratory failure. Reports feeling better. - Objective Vital Signs & Weight: Vital Signs (12 hours) Temp Pulse Resp BP Pulse Ox 11/30/20 11:16 98.5 F 79 18 109/76 97 11/30/20 08:49 96 11/30/20 08:00 96 11/30/20 07:28 98.1 F 95 18 110/76 96 11/30/20 04:00 97.7 F 74 18 105/70 97 Weight Admit Weight 197 lb 9.6 oz Weight 197 lb 9.6 oz I&O: 11/29/20 11/30/20 12/01/20 06:59 06:59 06:59 Intake Total 1070 900 Balance 1070 900 Result Diagrams: 11/30/20 06:43 11/30/20 06:43 Additional Labs: I reviewed patient's labs and MAR Hospitalist ROS - Review of Systems Cardiovascular: denies: chest pain, palpitations, orthopnea, paroxysmal noc. dyspnea, edema, light headedness Gastrointestinal: denies: nausea, vomiting, abdominal pain, diarrhea, constipation, melena, hematochezia - Medication Medications: Active Medications Generic Name Dose Route Start Last Admin Trade Name Freq PRN Reason Stop Dose Admin Hydrocodone Bitart/Acetaminophen 1 tab 11/25/20 07:56 11/26/20 05:52 Hydrocodone/Acetaminophen 5/325 Mg Tablet PO 1 tab Q4H PRN Administration Moderate Pain (4-6) Albuterol Sulfate 2 puff 11/25/20 13:00 11/30/20 14:41 Albuterol 200 Puff (6.7gm Inhaler) INH 2 puff [id number] OSBALDO Administration Apixaban 10 mg 11/27/20 21:00 11/30/20 07:49 Apixaban 5 Mg Tab PO 10 mg BID OSBALDO Administration Aspirin 81 mg 11/25/20 09:00 11/30/20 07:49 Aspirin 81 Mg Enteric Coated Tablet PO 81 mg DAILY OSBALDO Administration Dexamethasone 6 mg 11/25/20 09:00 11/30/20 07:49 Dexamethasone 4 Mg/Ml Vial SLOW IVP 6 mg DAILY OSBALDO Administration Ceftriaxone Sodium 1 gm/ 100 mls @ 200 mls/hr 11/25/20 15:00 11/30/20 14:41 Sodium Chloride IVPB 100 mls 1500 OSBALDO Administration Azithromycin 500 mg/ Sodium 250 mls @ 250 mls/hr 11/25/20 17:00 11/29/20 19:44 Chloride IVPB 250 mls 1700 OSBALDO Administration Melatonin 3 mg 11/27/20 11:00 11/27/20 20:58 Melatonin 3 Mg Tab PO 3 mg HS PRN Administration Insomnia Zolpidem Tartrate 5 mg 11/25/20 07:56 11/29/20 19:45 Zolpidem Tartrate 5 Mg Tab PO 5 mg HSPRN PRN Administration Insomnia - Exam General Appearance: awake alert Eye: anicteric sclera ENT: no oropharyngeal lesions Neck: no thyromegaly, no lymphadenopathy Heart: RRR Respiratory: CTAB Gastrointestinal: soft, non-tender Skin: no rashes Psychiatric: normal affect, normal behavior Hosp A/P - Plan Hosp A/P (1) Acute respiratory failure with hypoxemia Code(s): J96.01 - ACUTE RESPIRATORY FAILURE WITH HYPOXIA Status: Acute (2) Pneumonia due to COVID-19 virus Code(s): U07.1 - COVID-19; J12.82 - PNEUMONIA DUE TO CORONAVIRUS DISEASE 2019 Status: Acute (3) Pulmonary embolism Code(s): I26.99 - OTHER PULMONARY EMBOLISM WITHOUT ACUTE COR PULMONALE Status: Acute (4) Leukocytosis Code(s): D72.829 - ELEVATED WHITE BLOOD CELL COUNT, UNSPECIFIED Status: Acute (5) Type 2 myocardial infarction Code(s): I21.A1 - MYOCARDIAL INFARCTION TYPE 2 Status: Acute (6) Obesity (BMI 30.0-34.9) Code(s): E66.9 - OBESITY, UNSPECIFIED Status: Chronic - Plan Patient has improved significantly in the last couple of days, is on 3 L/min of oxygen today through nasal cannula. Switch to oral antibiotics. Continue Eliquis and dexamethasone. Patient was not a candidate for remdesivir therapy. Patient will need home oxygen. 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 Likely home in 24 to 48 hours.
[2020-11-30] MEDS: Azithromycin 500 MG in Sodium Chloride 0.9% 250 ML 250 ML IVPB SCH (18:18)
[2020-11-30] MEDS: Melatonin 3 MG TAB PO PRN (20:41)
[2020-12-01] MEDS: Albuterol 200 PUFF (6.7GM INHALER) INH SCH ×3 (00:55→14:03)
[2020-12-01 07:21] LABS: Hemoglobin 13.5 g/dL (14.0-18.0); Mean Corpuscular HGB CONC 32.8 g/dL (32.0-36.0); Mean Corpuscular Hemoglobin 31.3 pg (27.0-31.0); Mean Corpuscular Volume 95.1 fL (78.0-98.0); Platelet Count 320 thou/uL (130-400); RBC Distribution Width 13.1 % (11.5-14.5); Red Blood Cell (RBC) Count 4.32 mill/uL (4.70-6.10); White Blood Cell (WBC) Count 25.5 thou/uL (4.8-10.8)
[2020-12-01 07:25] LABS: Anion Gap 14 mmol/L (10-20); BUN (Urea Nitrogen) 22 mg/dL (8.4-25.7); Calc. Creatinine Clearance 131 mL/min (70-130); Calcium 8.6 mg/dL (7.8-10.44); Carbon Dioxide 27 mmol/L (22-29); Chloride 101 mmol/L (98-107); Glucose 87 mg/dL (70-105); Sodium 137 mmol/L (136-145)
[2020-12-01] MEDS: Apixaban 5 MG TAB PO SCH (07:58)
[2020-12-01] MEDS: Aspirin 81 mg Enteric Coated Tablet PO SCH (07:58)
[2020-12-01] MEDS: Dexamethasone 4 mg/ml Vial SLOW IVP SCH (07:58)
[2020-12-01 09:11] LABS: Band 4 % (5-11); Eosinophils 1 % (0-10); Lymphocytes 10 % (21-51); MDiff Complete? YES; Metamyelocyte 2 % (0-0); Monocytes 8 % (0-10); Neutrophil 74 % (42-75); Platelet Morphology Comment Appears Adequate; RBC Morphology Normal; Reactive Lymphocytes 1 % (0-10)
--- NOTE | 2020-12-01 13:25 | PDOC.DS.DS ---
Provider Date of Admission: 11/24/20 16:43 Date of Discharge: 12/01/20 Admitting Provider: Mahendra Morrow MD Primary Care Physician: NO PCP PROVIDER Course Hospital Course: Discharge diagnosis: 1. Acute hypoxic respiratory failure 2. COVID-19 pneumonia 3. Pulmonary embolism 4. Hyponatremia 5. Non-ST elevation myocardial infarction type II secondary to COVID-19 pneumonia Hospital course: Patient is a pleasant 55-year-old gentleman who was admitted to the hospital on November 24, 2020 for pulmonary embolism and COVID-19 pneumonia. He was treated with dexamethasone. He was not a candidate for remdesivir. He needed high flow oxygen, was eventually transitioned to oxygen by nasal cannula. Arrangements are being made for home oxygen. Many thanks for allowing me to participate in your patient's care. Please feel free to contact me with any questions or concerns. Discharge destination: Home Total amount of time spent coordinating this discharge: 32 minutes Resuscitation Status: 11/24/20 17:41 Resuscitation Status Routine Co-Sign Provider: Resuscitation Status: FULL: Full Resuscitation Discussed with: patient Lab Results: 12/01/20 06:34 12/01/20 06:34 Abnormal Lab Results - Last 48 hrs 11/30/20 06:43: WBC 30.1 H, RBC 4.58 L, Hgb 13.8 L, Band Neuts % (Manual) 3 L, Lymphocytes % (Manual) 8 L, Monocytes % (Manual) 13 H, Myelocytes % 1 H 12/01/20 06:34: WBC 25.5 H, RBC 4.32 L, Hgb 13.5 L, Hct 41.1 L, MCH 31.3 H, Band Neuts % (Manual) 4 L, Lymphocytes % (Manual) 10 L Microbiology - Entire Visit 11/24/20 15:40 Venous blood - Right Arm Blood Culture - Final NO GROWTH IN 5 DAYS 11/24/20 15:39 Venous blood - Left Arm Blood Culture - Final NO GROWTH IN 5 DAYS Vitals: Vital Signs (12 hours) Temp Pulse Resp BP Pulse Ox 12/01/20 08:00 97.7 F 92 18 113/73 95 12/01/20 07:21 97.7 F 92 18 113/73 95 12/01/20 04:00 97.7 F 74 18 99/58 L 99 Weight Admit Weight 197 lb 9.6 oz Weight 197 lb 9.6 oz Physical Exam: The patient was seen and examined on the day of discharge. Patient denies chest pain or shortness of breath. Vital signs are stable. S1 and S2 are heard. Lungs are clear to auscultation bilaterally. Plan Prescriptions: Cefdinir 300 mg PO Q12HR #14 capsule Dexamethasone 6 mg PO DAILY #3 tablet Pantoprazole [Protonix] 40 mg PO DAILY #3 tab Ascorbic Acid [Vitamin C] 1,000 mg PO DAILY #7 tablet Zinc Sulfate [Zinc-220] 220 mg PO DAILY #7 capsule Home Medications: Medication Instructions Recorded Confirmed Type Apixaban [Eliquis] 10 mg PO BID tab 12/01/20 Rx Ascorbic Acid [Vitamin C] 1,000 mg PO DAILY #7 tablet 12/01/20 Rx Cefdinir 300 mg PO Q12HR #14 capsule 12/01/20 Rx Dexamethasone 6 mg PO DAILY #3 tablet 12/01/20 Rx Pantoprazole [Protonix] 40 mg PO DAILY #3 tab 12/01/20 Rx Zinc Sulfate [Zinc-220] 220 mg PO DAILY #7 capsule 12/01/20 Rx Allergies: No Known Allergies Allergy (Verified 11/24/20 20:27) Discharge Instructions:: YOUR PRESCRIPTIONS WERE SENT TO: [address], [place] [address] Referrals: [facility] [Outside] PROVIDER,NO PCP [Primary Care Provider] - Zeferino Flaherty MD [Active] - Disposition: HOME Quality CORE MEASURES:: N/A
[2020-12-01] MEDS: cefTRIAXone\\ROCEPHIN 1 GM in Sodium Chloride 0.9% 100 ML IVPB SCH (13:58)
[2020-12-01 17:07] VITALS: BP 118/78; TEMP 97.8
== END 2020-12-01 16:54 | disposition home or self-care (01) | DRG 177 ==
LOC: ERS 15:09 → T4-B 16:43
PROVIDERS: ADMIT Internal Medicine; ATTEND Internal Medicine
PROC: 8E0ZXY6 Isolation (ICD-10-PCS; principal; 2020-11-24)
DX: U07.1 COVID-19 (principal); J96.01 Acute respiratory failure with hypoxia; J12.82 Pneumonia due to coronavirus disease 2019; I26.99 Other pulmonary embolism without acute cor pulmonale; I21.A1 Myocardial infarction type 2; E87.1 Hypo-osmolality and hyponatremia; E66.9 Obesity, unspecified; Z68.31 Body mass index [BMI] 31.0-31.9, adult
CPT/HCPCS: 36415; 71045; 71275; 80048; 80053; 80061; 81001; 82550; 82553; 82728; 83605; 83690; 83735; 83880; 84443; 84484; 85025; 85379; 85610; 85730; 86140; 87040; 87635; 93005; 93010; 94760; 94799; 96365; 96367; 96372; 96375; J0456; J0696; J1100; J1650; J3490; J7050; Q9967; U0003; U0005